=== PATIENT | female | born 1940 | race Two or more races ===

== ENCOUNTER 2024-03-29 13:21 | Inpatient (IN) | payer OTHER ==
[~2024-03-29] VITALS: Ht 162.6 cm; Wt 43.1 kg
[2024-03-29] VITALS (18 sets, daily range): BP systolic 81–129; BP diastolic 37–94; TEMP 97.8; O2SAT 89–100
[2024-03-29] MEDS: IV NS 0.9% 500 ML BAG IV ONE (14:35)
[2024-03-29] MEDS ORDERED: LORAZEPAM INJ 2 MG/ML VIAL ONE ×2 (14:52→15:49)
[2024-03-29] MEDS: LORAZEPAM INJ 2 MG/ML VIAL IV ONE ×2 (14:57→15:55)
[2024-03-29 14:58] LABS: BASOPHILS % (AUTO) 0.3 % (0.0-2.0); EOSINOPHILS % (AUTO) 0.1 % (0.0-6.0); HEMATOCRIT 45 % (33-45); HEMOGLOBIN 14.1 g/dL (11.5-14.8); LYMPHOCYTES % (AUTO) 14.8 % (20.0-44.0); MEAN CORPUSCULAR HEMOGLOBIN 29 PG (26.0-33.0); MEAN CORPUSCULAR HGB CONC 31 g/dl (31.0-36.0); MEAN CORPUSCULAR VOLUME 93 fL (82-100); MONOCYTES # (AUTO) 0.7 K/uL (0.1-1.30); MONOCYTES % (AUTO) 4.9 % (2.0-12.0); NEUTROPHILS # (AUTO) 10.6 K/uL (1.8-8.9); NEUTROPHILS % (AUTO) 79.9 % (43.0-81.0); PLATELET COUNT (AUTO) 503 K/uL (150-450); RED BLOOD CELL COUNT(AUTO) 4.84 MIL/uL (4.0-5.2); RED CELL DISTRIBUTION WIDTH 16.1 % (11.5-15.0); WHITE BLOOD COUNT (AUTO) 13.3 K/uL (4.3-11.0)
[2024-03-29 15:13] LABS: ALANINE AMINOTRANSFERASE 31 U/L (12-78); ALBUMIN 3.2 g/dL (3.4-5.0); ALCOHOL, BLOOD < 3 mg/dL (0-10); ALKALINE PHOSPHATASE 145 U/L (46-116); ASPARTATE AMINOTRANSFERASE 26 U/L (15-37); BILIRUBIN,DIRECT 0.1 mg/dL (0.0-0.2); BILIRUBIN,TOTAL 0.4 mg/dL (0.2-1.0); CALCIUM, SERUM 9.4 mg/dL (8.5-10.1); CARBON DIOXIDE 28 mmol/L (21-32); CHLORIDE 122 mmol/L (98-107); CREATININE 3.8 mg/dL (0.6-1.3); GLUCOSE 145 mg/dL (74-106); POTASSIUM 4.3 mmol/L (3.5-5.1); TOTAL PROTEIN, SERUM 8.1 g/dL (6.4-8.2)
[2024-03-29 15:17] LABS: SALICYLATE 0.7 mg/dL (2.8-20.0)
[2024-03-29 15:18] LABS: ACETAMINOPHEN 0 ug/ml (10-30)
[2024-03-29 15:19] LABS: NT-PRO BNP 300 pg/mL (0-125)
[2024-03-29 15:20] LABS: SODIUM SERUM 164 mmol/L (136-145); UREA NITROGEN, BLOOD 148 mg/dL (7-18)
[2024-03-29 17:24] LABS: APPEARANCE,URINE CLEAR (CLEAR); BILIRUBIN,URINE NEGATIVE (NEGATIVE); BLOOD, URINE NEGATIVE Ery/uL (NEGATIVE); COLOR,URINE YELLOW (YELLOW); KETONES,URINE NEGATIVE (NEGATIVE); LEUKOCYTE ESTERASE ,URINE 1+ (NEGATIVE); NITRITE, URINE NEGATIVE (NEGATIVE); PROTEIN,URINE NEGATIVE (NEGATIVE); UGLUCOSE NEGATIVE (NEGATIVE); UROBILINOGEN,URINE 0.2 EU/dL (0.2)
[2024-03-29] MEDS ORDERED: BUSP5TAB3 PO (17:25)
[2024-03-29] MEDS ORDERED: GABA-532 PO (17:25)
[2024-03-29] MEDS ORDERED: RIVA10TA PO (17:25)
[2024-03-29] MEDS ORDERED: LEVO88TA5 PO (17:25)
[2024-03-29] MEDS ORDERED: HYDR25TA4 PO (17:25)
[2024-03-29 17:42] LABS: ADD URINE CULTURE YES; BACTERIA,URINE 1+ /HPF (None Seen); WBC,URINE 21-50 /HPF (0-3)
[2024-03-29 17:43] LABS: AMPHETAMINE, URINE NEGATIVE (NEGATIVE); BARBITURATE, URINE NEGATIVE (NEGATIVE); BENZODIAZEPINE, URINE NEGATIVE (NEGATIVE); CANNABINOID, URINE NEGATIVE (NEGATIVE); COCCAINE, URINE NEGATIVE (NEGATIVE); OPIATE, URINE NEGATIVE (NEGATIVE); PHENCYCLIDINE SCREEN,URINE NEGATIVE (NEGATIVE)
[2024-03-29] MEDS ORDERED: Z GUARD REMEDY 4 OZ OINT TP PRN (18:00)
[2024-03-29] MEDS ORDERED: ONDANSETRON HCL/PF 4 MG/2 ML VIAL IVP PRN (18:00)
[2024-03-29] MEDS ORDERED: PIPERACILLIN /TAZOBACTAM 4.5 G in IV D5W 50 ML IV SCH (18:00)
[2024-03-29] MEDS ORDERED: IV NS 0.9% 1,000 ML IV PRN (18:00)
[2024-03-29] MEDS ORDERED: ACETAMINOPHEN 325 MG TABLET PO PRN (18:00)
[2024-03-29] MEDS: IV D5W 1,000 ML IV PRN (18:20)
[2024-03-29] MEDS: PIPERACILLIN /TAZOBACTAM 2.25 G in IV D5W 50 ML IV SCH (19:07)
[2024-03-29 22:43] LABS: LACTIC ACID 2.6 mmol/L (0.4-2.0)
[2024-03-29] MEDS: NOREPINEPHRINE 4 MG/4 ML AMPUL IV ONE (22:54)
[2024-03-29] MEDS: NOREPINEPHRINE 32 MG in IV NS 0.9% 218 ML IV PRN (22:56)
[2024-03-30] VITALS (97 sets, daily range): BP systolic 66–149; BP diastolic 32–99; TEMP 97.5–97.9; O2SAT 93–100
[2024-03-30 04:30] LABS: BASOPHILS % (AUTO) 0.2 % (0.0-2.0); EOSINOPHILS # (AUTO) 0.1 K/uL (0.0-0.7); EOSINOPHILS % (AUTO) 0.7 % (0.0-6.0); HEMATOCRIT 37 % (33-45); LYMPHOCYTES # (AUTO) 1.3 K/uL (0.8-4.8); LYMPHOCYTES % (AUTO) 12.4 % (20.0-44.0); MEAN CORPUSCULAR HEMOGLOBIN 30 PG (26.0-33.0); MEAN CORPUSCULAR HGB CONC 32 g/dl (31.0-36.0); MEAN CORPUSCULAR VOLUME 92 fL (82-100); MONOCYTES # (AUTO) 0.6 K/uL (0.1-1.30); MONOCYTES % (AUTO) 5.3 % (2.0-12.0); NEUTROPHILS # (AUTO) 8.7 K/uL (1.8-8.9); NEUTROPHILS % (AUTO) 81.4 % (43.0-81.0); PLATELET COUNT (AUTO) 400 K/uL (150-450); RED CELL DISTRIBUTION WIDTH 15.8 % (11.5-15.0); WHITE BLOOD COUNT (AUTO) 10.7 K/uL (4.3-11.0)
[2024-03-30 04:52] LABS: CALCIUM, SERUM 8.4 mg/dL (8.5-10.1); CARBON DIOXIDE 26 mmol/L (21-32); CHLORIDE 123 mmol/L (98-107); CREATININE 2.7 mg/dL (0.6-1.3); GLUCOSE 195 mg/dL (74-106); MAGNESIUM 3.6 mg/dL (1.8-2.4); PHOSPHORUS 4.2 mg/dL (2.5-4.9); POTASSIUM 3.5 mmol/L (3.5-5.1)
[2024-03-30 05:00] LABS: LACTIC ACID 1.3 mmol/L (0.4-2.0)
[2024-03-30 05:09] LABS: SODIUM SERUM 159 mmol/L (136-145); UREA NITROGEN, BLOOD 124 mg/dL (7-18)
[2024-03-30 05:54] LABS: ABG BASE EXCESS -2.2 mmol/L (-2.0-3.0); ABG OXYGEN SATURATION 98.4 % (94.0-98.0); ABG PCO2 32.1 mmHg (32.0-45.0); ABG PH 7.436 (7.350-7.450); ABG PO2 129.1 mmHg (83.0-108.0); ABG TOTAL HEMOGLOBIN 13.3 G/dL (12.0-16.0); MetHb 0.2 % (0.0-1.5); O2Hb 98.2 % (94.0-97.0); SITE, ABG RIGHT RADIAL
[2024-03-30] MEDS: PANTOPRAZOLE 40 MG VIAL IV SCH (08:36)
[2024-03-30] MEDS: IV NS 0.9% 500 ML BAG IV ONE (09:11)
[2024-03-30] MEDS: HEPARIN SODIUM, PORCINE 5000 UNITS/1 ML VIAL SQ SCH (09:50)
[2024-03-30] MEDS: IV D5W 1,000 ML IV ONE (10:30)
[2024-03-30] MEDS: IV 1/2NS 1000 ML 1,000 ML IV SCH (10:31)
[2024-03-30 18:11] LABS: CALCIUM, SERUM 7.9 mg/dL (8.5-10.1); CARBON DIOXIDE 22 mmol/L (21-32); CHLORIDE 115 mmol/L (98-107); GLUCOSE 165 mg/dL (74-106); POTASSIUM 3.1 mmol/L (3.5-5.1); SODIUM SERUM 147 mmol/L (136-145)
[2024-03-30] MEDS: HYDROCORTISONE SOD SUCCINATE 100 MG/2 ML VIAL IV SCH (18:11)
[2024-03-30 18:14] LABS: UREA NITROGEN, BLOOD 95 mg/dL (7-18)
[2024-03-30 18:42] LABS: MAGNESIUM 3.2 mg/dL (1.8-2.4)
[2024-03-30 19:51] LABS: THYROID STIMULATING HORMONE 0.18 uIU/mL (0.358-3.74)
[2024-03-30 21:04] LABS: OSMOLALITY,SERUM 398 mOS/kg (278-305); OSMOLALITY,URINE 601 mOS/kg (340-1090)
[2024-03-31] VITALS (46 sets, daily range): BP systolic 90–139; BP diastolic 35–98; TEMP 97.2–97.8; O2SAT 96–100
[2024-03-31 04:34] LABS: BASOPHILS % (AUTO) 0.1 % (0.0-2.0); HEMATOCRIT 35 % (33-45); HEMOGLOBIN 11.5 g/dL (11.5-14.8); MEAN CORPUSCULAR HEMOGLOBIN 30 PG (26.0-33.0); MEAN CORPUSCULAR HGB CONC 33 g/dl (31.0-36.0); MEAN CORPUSCULAR VOLUME 92 fL (82-100); MONOCYTES # (AUTO) 0.1 K/uL (0.1-1.30); MONOCYTES % (AUTO) 1.6 % (2.0-12.0); NEUTROPHILS # (AUTO) 7.7 K/uL (1.8-8.9); NEUTROPHILS % (AUTO) 87.3 % (43.0-81.0); PLATELET COUNT (AUTO) 353 K/uL (150-450); RED BLOOD CELL COUNT(AUTO) 3.82 MIL/uL (4.0-5.2); RED CELL DISTRIBUTION WIDTH 15.1 % (11.5-15.0); WHITE BLOOD COUNT (AUTO) 8.8 K/uL (4.3-11.0)
[2024-03-31 05:21] LABS: ALANINE AMINOTRANSFERASE 32 U/L (12-78); ALBUMIN 2.3 g/dL (3.4-5.0); ALKALINE PHOSPHATASE 105 U/L (46-116); ASPARTATE AMINOTRANSFERASE 35 U/L (15-37); BILIRUBIN,TOTAL 0.6 mg/dL (0.2-1.0); CALCIUM, SERUM 7.8 mg/dL (8.5-10.1); CARBON DIOXIDE 22 mmol/L (21-32); CHLORIDE 114 mmol/L (98-107); CREATININE 1.6 mg/dL (0.6-1.3); GLUCOSE 133 mg/dL (74-106); MAGNESIUM 2.8 mg/dL (1.8-2.4); PHOSPHORUS 3.4 mg/dL (2.5-4.9); POTASSIUM 3.6 mmol/L (3.5-5.1); SODIUM SERUM 145 mmol/L (136-145); TOTAL PROTEIN, SERUM 5.9 g/dL (6.4-8.2); UREA NITROGEN, BLOOD 60 mg/dL (7-18)
[2024-03-31] MEDS ORDERED: RIVAROXABAN 10 MG TABLET PO SCH ×2 (17:00)
[2024-03-31 17:58] LABS: CREATINE KINASE, TOTAL 228 U/L (26-192)
[2024-03-31] MEDS ORDERED: PANT40VI IV (20:36)
[2024-03-31] MEDS ORDERED: HEPA50008 SQ (20:36)
[2024-03-31] MEDS ORDERED: ACET325T53 PO (20:36)
[2024-03-31] MEDS ORDERED: LEVO50TA PO (20:36)
[2024-03-31] MEDS ORDERED: HYDR100V6 IV (20:36)
[2024-03-31] MEDS ORDERED: Z Guard Remedy TP (20:36)
[2024-03-31] MEDS ORDERED: [UNRECOGNIZED DRUG - CODE] IV (20:36)
[2024-03-31] MEDS ORDERED: ONDA4VIA23 IVP (20:36)
[2024-03-31] MEDS ORDERED: PIPE2.257 IV (20:36)
[2024-04-01 06:07] LABS: PTH, INTACT 54 pg/mL (15-65)
[2024-04-01] MEDS ORDERED: LEVOTHYROXINE SODIUM 50 MCG TABLET PO SCH (09:00)
== END 2024-03-31 22:10 | disposition short-term general hospital (02) | DRG 871 ==
LOC: ER 13:21 → ICU 17:36 → TELE1 03-31 17:42
PROVIDERS: ADMIT Internal Medicine; ATTEND Internal Medicine
DX: A41.9 Sepsis, unspecified organism (principal); G93.41 Metabolic encephalopathy; N17.0 Acute kidney failure with tubular necrosis; I21.A1 Myocardial infarction type 2; R65.21 Severe sepsis with septic shock; E87.0 Hyperosmolality and hypernatremia; N39.0 Urinary tract infection, site not specified; Z68.1 Body mass index [BMI] 19.9 or less, adult; F03.90 Unspecified dementia, unspecified severity, without behavioral disturbance, psychotic disturbance, mood disturbance, and anxiety; E03.9 Hypothyroidism, unspecified; R62.7 Adult failure to thrive; E78.5 Hyperlipidemia, unspecified; E83.42 Hypomagnesemia; E86.0 Dehydration; N18.9 Chronic kidney disease, unspecified; Z79.01 Long term (current) use of anticoagulants; Z86.718 Personal history of other venous thrombosis and embolism; Z20.822 Contact with and (suspected) exposure to COVID-19; R53.1 Weakness; D63.8 Anemia in other chronic diseases classified elsewhere; J47.9 Bronchiectasis, uncomplicated; G31.9 Degenerative disease of nervous system, unspecified; L89.621 Pressure ulcer of left heel, stage 1; L89.611 Pressure ulcer of right heel, stage 1; I12.9 Hypertensive chronic kidney disease with stage 1 through stage 4 chronic kidney disease, or unspecified chronic kidney disease; J84.10 Pulmonary fibrosis, unspecified; M89.8X9 Other specified disorders of bone, unspecified site
CPT/HCPCS: 36415; 70450-TC; 71045-TC; 76770-TC; 80048-TC; 80053-TC; 80076-TC; 81001; 82533; 82550-TC; 83605-TC; 83735-TC; 83880; 83935-TC; 83970; 84100-TC; 84155; 84165; 84295-TC; 84300-TC; 84439-TC; 84443-TC; 84484-TC; 85025-TC; 87081-TC; 87086-TC; 92526; 92611-TC; 93307-TC; A4223; G0378; G0480; J1644; J1720; J2060; J2470; J2543; J3490; J7040; J7050; J7060; J7070